=== PATIENT | male | born 1935 | race Caucasian/White ===

== ENCOUNTER 2024-07-04 20:13 | Observation (INO) | payer MEDICARE, OTHER ==
[2024-07-04 20:57] LABS: BASOPHILS ABSOLUTE AUTO 0.07 K/uL (0.00-0.10); BASOPHILS PERCENT AUTO 0.5 % (0.1-1.3); EOSINOPHILS ABSOLUTE AUTO 0.05 K/uL (0.00-0.40); EOSINOPHILS PERCENT AUTO 0.4 % (0.0-5.4); HEMATOCRIT 35.1 % (38.4-49.7); HEMOGLOBIN 12.1 g/dL (12.9-16.9); IMMATURE GRAN ABSOLUTE AUTO 0.08 K/uL (0.00-0.23); IMMATURE GRAN PERCENT AUTO 0.6 % (0.0-0.7); LYMPHOCYTES ABSOLUTE AUTO 1.08 K/uL (0.8-3.3); LYMPHOCYTES PERCENT AUTO 7.6 % (11.4-47.7); MEAN CORPUSCULAR HEMOGLOBIN 33.1 pg (31.6-35.5); MEAN CORPUSCULAR HGB CONC 34.5 g/dL (31.6-35.5); MEAN CORPUSCULAR VOLUME 95.9 fL (81.4-99.0); MONOCYTES ABSOLUTE AUTO 1.76 K/uL (0.20-0.90); MONOCYTES PERCENT AUTO 12.4 % (3.3-12.6); NEUTROPHILS ABSOLUTE AUTO 11.15 K/uL (1.0-7.6); NEUTROPHILS PERCENT AUTO 78.5 % (40.0-78.1); PLATELET COUNT,PLT 760 K/uL (130-375); RED BLOOD CELL COUNT 3.66 M/uL (4.14-5.76); WHITE BLOOD CELL COUNT,WBC 14.2 K/uL (3.2-11.0)
[2024-07-04] MEDS: Sodium Chloride 0.9% 1,000 ML IV SCH (21:03)
[2024-07-04] MEDS: Ondansetron 4 MG/2 ML SDV IVPUSH ONE (21:03)
[2024-07-04 21:06] LABS: ALANINE AMINOTRANSFERASE,ALT 19 U/L (12-78); ALKALINE PHOSPHATASE 79 U/L (46-116); ANION GAP 20.1 mmol/L (5.0-14.0); ASPARTATE AMNIOTRANSFERASE,AST 31 U/L (15-37); BILIRUBIN TOTAL 0.3 mg/dL (0.2-1.0); BLOOD UREA NITROGEN,BUN 33 mg/dL (7-18); CALCIUM 9.9 mg/dL (8.5-10.1); CARBON DIOXIDE,CO2 19 mmol/L (21-32); CHLORIDE,CL 97 mmol/L (100-108); CREATININE 1.7 mg/dL (0.8-1.3); EST CRCL DRUG DOSING (CG) 30.24 mL/min; ESTIMATED GFR 38 mL/min (>60); GLUCOSE RANDOM 176 mg/dL (74-106); POTASSIUM,K 4.1 mmol/L (3.6-5.2); PROTEIN TOTAL,TP 7.9 g/dL (6.4-8.2); SODIUM,NA 132 mmol/L (140-148)
[2024-07-04] MEDS: HYDROmorphone 0.5 MG/0.5 ML Syringe IVPUSH ONE (21:09)
[2024-07-04 21:48] LABS: APPEARANCE,URINE CLOUDY (CLEAR); BILIRUBIN,URINE NEGATIVE (NEGATIVE); COLOR,URINE YELLOW (YELLOW); GLUCOSE,URINE NEGATIVE (NEGATIVE); KETONES,URINE TRACE mg/dL (NEGATIVE); LEUKOCYTE ESTERASE,URINE MODERATE (NEGATIVE); NITRITE,URINE NEGATIVE (NEGATIVE); OCCULT BLOOD,URINE LARGE (NEGATIVE); PH,URINE 6.5 (5.0-8.0); PROTEIN,URINE 100 mg/dL (NEGATIVE); UROBILINOGEN,URINE 0.2 EU/dL (0.2-1.0)
[2024-07-04 21:57] LABS: AMORPHOUS SEDIMENT,URINE NOT SEEN; BACTERIA,URINE FEW; EPITHELIAL CELLS,URINE NOT SEEN; MUCUS,URINE RARE; RBC,URINE 50-75 (0-5); WBC,URINE 50-75 (0-5)
[2024-07-04] MEDS: Alum Hydrox/Mag Hydrox/Simeth 15 ML, Lidocaine 2% 15 ML PO ONE (22:29)
[2024-07-04] MEDS: Pantoprazole 40 MG Vial IVPUSH ONE (23:22)
[2024-07-05] MEDS: HYDROmorphone 0.5 MG/0.5 ML Syringe IVPUSH ONE (00:51)
[2024-07-05] MEDS: Sodium Chloride 0.9% 1,000 ML IV SCH ×2 (00:52→03:06)
[2024-07-05] MEDS: HYDROmorphone 0.5 MG/0.5 ML Syringe IVPUSH PRN (02:27)
[2024-07-05] MEDS: Ondansetron 4 MG/2 ML SDV IV PRN (02:29)
[2024-07-05] MEDS ORDERED: ANAGRELIDE HCL 1 MG PO SCH (09:00)
[2024-07-05] MEDS: Diltiazem 120 MG Cap.CD PO SCH (09:05)
[2024-07-05] MEDS ORDERED: oxyCODONE 5 MG Tab PO PRN (09:27)
[2024-07-05] MEDS ORDERED: Propofol 200 MG/20 ML SDV ONE (09:54)
[2024-07-05] MEDS ORDERED: fentaNYL 50 MCG/ML SDV ONE (09:54)
== END 2024-07-05 13:48 | disposition home or self-care (01) ==
LOC: JP.ED 20:13 → JP.MS 07-05 01:26
PROVIDERS: ADMIT Family Medicine; ATTEND Internal Medicine
DX: K29.80 Duodenitis without bleeding (principal); M54.9 Dorsalgia, unspecified; N32.89 Other specified disorders of bladder; I12.9 Hypertensive chronic kidney disease with stage 1 through stage 4 chronic kidney disease, or unspecified chronic kidney disease; N18.32 Chronic kidney disease, stage 3b; N40.0 Benign prostatic hyperplasia without lower urinary tract symptoms; Z79.899 Other long term (current) drug therapy; Z88.2 Allergy status to sulfonamides
CPT/HCPCS: 00731-QZ; 36415; 71045; 71045-26; 74176; 76705; 80053; 81001; 82150; 83690; 84484; 85025; 86140; 87086; 87088; 87186; 88305; 93005; 93010; 96361; 96374; 96375; 96376; 99238; 99284-25; 99285; A9270-GY; G0378; J1170; J2405; J2470; J2704; J3010; J7030

== ENCOUNTER 2024-07-06 05:32 | Inpatient (IN) | payer MEDICARE, OTHER ==
[2024-07-06] MEDS ORDERED: Naloxone 0.4 MG/ML SDV IVPUSH PRN (06:14)
[2024-07-06] MEDS: HYDROmorphone 0.5 MG/0.5 ML Syringe IVPUSH PRN (06:21)
[2024-07-06] MEDS: Sodium Chloride 0.9% 1,000 ML IV SCH ×2 (06:25→12:43)
[2024-07-06] MEDS: Ondansetron 4 MG/2 ML SDV IVPUSH PRN (06:25)
[2024-07-06 06:27] LABS: BASOPHILS ABSOLUTE AUTO 0.03 K/uL (0.00-0.10); BASOPHILS PERCENT AUTO 0.2 % (0.1-1.3); EOSINOPHILS ABSOLUTE AUTO 0.08 K/uL (0.00-0.40); EOSINOPHILS PERCENT AUTO 0.5 % (0.0-5.4); HEMATOCRIT 34.8 % (38.4-49.7); HEMOGLOBIN 11.8 g/dL (12.9-16.9); IMMATURE GRAN ABSOLUTE AUTO 0.08 K/uL (0.00-0.23); IMMATURE GRAN PERCENT AUTO 0.5 % (0.0-0.7); LYMPHOCYTES ABSOLUTE AUTO 0.83 K/uL (0.8-3.3); LYMPHOCYTES PERCENT AUTO 4.7 % (11.4-47.7); MEAN CORPUSCULAR HEMOGLOBIN 32.7 pg (31.6-35.5); MEAN CORPUSCULAR HGB CONC 33.9 g/dL (31.6-35.5); MEAN CORPUSCULAR VOLUME 96.4 fL (81.4-99.0); MONOCYTES ABSOLUTE AUTO 2.55 K/uL (0.20-0.90); MONOCYTES PERCENT AUTO 14.4 % (3.3-12.6); NEUTROPHILS ABSOLUTE AUTO 14.17 K/uL (1.0-7.6); NEUTROPHILS PERCENT AUTO 79.7 % (40.0-78.1); PLATELET COUNT,PLT 606 K/uL (130-375); RED BLOOD CELL COUNT 3.61 M/uL (4.14-5.76); WHITE BLOOD CELL COUNT,WBC 17.7 K/uL (3.2-11.0)
[2024-07-06 06:57] LABS: A/G RATIO 0.9 (1.2-2.2); ALANINE AMINOTRANSFERASE,ALT 19 U/L (12-78); ALBUMIN 3.4 g/dL (3.4-5.0); ALKALINE PHOSPHATASE 81 U/L (46-116); ASPARTATE AMNIOTRANSFERASE,AST 36 U/L (15-37); BILIRUBIN TOTAL 0.6 mg/dL (0.2-1.0); BLOOD UREA NITROGEN,BUN 16 mg/dL (7-18); CALCIUM 9.6 mg/dL (8.5-10.1); CARBON DIOXIDE,CO2 24 mmol/L (21-32); CHLORIDE,CL 102 mmol/L (100-108); CREATININE 1.4 mg/dL (0.8-1.3); EST CRCL DRUG DOSING (CG) 36.72 mL/min; ESTIMATED GFR 48 mL/min (>60); GLUCOSE RANDOM 118 mg/dL (74-106); PHOSPHORUS 1.8 mg/dL (2.5-4.9); POTASSIUM,K 4.3 mmol/L (3.6-5.2); PROTEIN TOTAL,TP 7.1 g/dL (6.4-8.2); SODIUM,NA 138 mmol/L (140-148)
[2024-07-06 06:59] LABS: ANION GAP 16.3 mmol/L (5.0-14.0); MAGNESIUM 1.7 mg/dL (1.8-2.4)
[2024-07-06] MEDS: Iopamidol 612 MG/ML 100 ML Bottle IV ONE (07:42)
[2024-07-06] MEDS: Sodium Chloride 0.9% 80 ML IV SCH (07:42)
[2024-07-06 07:43] LABS: APPEARANCE,URINE CLOUDY (CLEAR); BILIRUBIN,URINE NEGATIVE (NEGATIVE); COLOR,URINE YELLOW (YELLOW); GLUCOSE,URINE NEGATIVE (NEGATIVE); KETONES,URINE NEGATIVE (NEGATIVE); LEUKOCYTE ESTERASE,URINE NEGATIVE (NEGATIVE); NITRITE,URINE NEGATIVE (NEGATIVE); OCCULT BLOOD,URINE MODERATE (NEGATIVE); PH,URINE 7.5 (5.0-8.0); PROTEIN,URINE >=300 mg/dL (NEGATIVE); UROBILINOGEN,URINE 0.2 EU/dL (0.2-1.0)
[2024-07-06 07:53] LABS: AMORPHOUS SEDIMENT,URINE NOT SEEN; BACTERIA,URINE FEW; EPITHELIAL CELLS,URINE NOT SEEN; MUCUS,URINE NOT SEEN; RBC,URINE 30-40 (0-5)
[2024-07-06] MEDS: Piperacillin/Tazobactam 4.5 GM in Sodium Chloride 0.9% 100 ML IV ONE (08:14)
[2024-07-06] MEDS ORDERED: Acetaminophen 325 MG Tab PO PRN (11:07)
[2024-07-06] MEDS ORDERED: Sennosides/Docusate Sodium 50-8.6 MG Tab PO PRN (11:07)
[2024-07-06] MEDS ORDERED: Ondansetron 4 MG/2 ML SDV IV PRN (11:07)
[2024-07-06] MEDS ORDERED: Magnesium Hydroxide 400 MG/5 ML Susp 30 ML Cup PO PRN (11:07)
[2024-07-06] MEDS ORDERED: Ondansetron 4 MG Tab.DIS PO PRN (11:07)
[2024-07-06] MEDS: Hyoscyamine 0.125 MG Tab.SL SL ONE (11:11)
[2024-07-06] MEDS: Diltiazem 120 MG Cap.CD PO SCH (11:53)
[2024-07-06] MEDS: Magnesium Sulfate/Water 2 GM in Premix Bag 1 BAG IV ONE (12:01)
[2024-07-06] MEDS: Polyethylene Glycol 3350 Powder 238 GM Bot PO ONE (12:01)
[2024-07-06] MEDS: Bisacodyl 5 MG Tab PO ONE (12:01)
[2024-07-06] MEDS: Hyoscyamine 0.125 MG Tab.SL SL PRN (15:52)
[2024-07-06] MEDS: Diltiazem 120 MG Cap.CD PO ONE (17:20)
[2024-07-06] MEDS: Bisacodyl 10 MG Supp RECTAL ONE (18:44)
[2024-07-07] MEDS ORDERED: Amoxicillin 500 MG Cap PO SCH
[2024-07-07 04:50] LABS: HEMATOCRIT 35.1 % (38.4-49.7); HEMOGLOBIN 12.1 g/dL (12.9-16.9); MEAN CORPUSCULAR HEMOGLOBIN 33.1 pg (31.6-35.5); MEAN CORPUSCULAR HGB CONC 34.5 g/dL (31.6-35.5); MEAN CORPUSCULAR VOLUME 95.9 fL (81.4-99.0); RED BLOOD CELL COUNT 3.66 M/uL (4.14-5.76); WHITE BLOOD CELL COUNT,WBC 19.3 K/uL (3.2-11.0)
[2024-07-07 05:05] LABS: CALCIUM 8.8 mg/dL (8.5-10.1); CREATININE 1.4 mg/dL (0.8-1.3); EST CRCL DRUG DOSING (CG) 36.08 mL/min; POTASSIUM,K 3.8 mmol/L (3.6-5.2)
[2024-07-07 05:15] LABS: ANION GAP 12.8 mmol/L (5.0-14.0)
[2024-07-07] MEDS: ANAGRELIDE 1 MG PO SCH (08:20)
[2024-07-07] MEDS: Amoxicillin 500 MG Cap PO SCH (11:30)
== END 2024-07-07 15:15 | disposition home or self-care (01) | DRG 392 ==
LOC: JP.ED 05:32 → JP.MS 10:48
PROVIDERS: ADMIT Internal Medicine; ATTEND Internal Medicine
DX: R10.84 Generalized abdominal pain (principal); I10 Essential (primary) hypertension; K59.04 Chronic idiopathic constipation; I12.9 Hypertensive chronic kidney disease with stage 1 through stage 4 chronic kidney disease, or unspecified chronic kidney disease; J45.909 Unspecified asthma, uncomplicated; N18.31 Chronic kidney disease, stage 3a; N32.9 Bladder disorder, unspecified; R79.89 Other specified abnormal findings of blood chemistry; D47.3 Essential (hemorrhagic) thrombocythemia; H54.7 Unspecified visual loss; D72.829 Elevated white blood cell count, unspecified; Z88.8 Allergy status to other drugs, medicaments and biological substances; Z88.2 Allergy status to sulfonamides; Z90.49 Acquired absence of other specified parts of digestive tract; Z79.899 Other long term (current) drug therapy; Z98.890 Other specified postprocedural states
CPT/HCPCS: 36415; 71260; 74177; 80053; 81001; 82150; 83605; 83690; 83735; 84100; 84145; 84484; 85025; J1170; J2405; J2543; J3490 ×2; J7030; Q9967; 80048; 85027; 96361; 96365; 96375; 99222; 99238; 99284; 99285-25; A9270-GY; J3475